=== PATIENT | female | born 1980 | race Caucasian/White ===

== ENCOUNTER 2024-10-26 13:24 | Emergency (ER) | payer OTHER, MEDICAID ==
[~2024-10-26] VITALS: Ht 165.1 cm; Wt 84.7 kg
[2024-10-26 13:50] VITALS: BP 131/88; PULSE 97; RESP 16; TEMP 98.4; O2SAT 97
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
[2024-10-26] MEDS ORDERED: KETO10TA PO (20:34)
[2024-10-26] MEDS: KETOROLAC TROMETH 60MG/2ML VIAL IM ONE (20:36)
[2024-10-26] MEDS: HYDROcodone-ACET 5/325MG TAB PO ONE (20:37)
== END 2024-10-26 20:55 | disposition home or self-care (01) ==
LOC: ER 13:24
DX: S52.591A Other fractures of lower end of right radius, initial encounter for closed fracture (principal); Z88.2 Allergy status to sulfonamides; V89.2XXA Person injured in unspecified motor-vehicle accident, traffic, initial encounter; Y93.89 Activity, other specified; Y92.410 Unspecified street and highway as the place of occurrence of the external cause; Y99.8 Other external cause status
CPT/HCPCS: 29125; 73110; 96372; 99283; J1885